=== PATIENT | female | born 1995 | race Caucasian/White ===

== ENCOUNTER 2016-06-06 21:43 | Emergency (ER) | payer OTHER ==
[2016-06-06] MEDS ORDERED: LORazepam 0.5 MG TABLET PO STA (22:11)
[2016-06-06] MEDS ORDERED: LORazepam 0.5 MG TABLET ONE (22:12)
== END 2016-06-06 22:31 | disposition home or self-care (01) ==
DX: F41.1 Generalized anxiety disorder (principal)
CPT/HCPCS: 99283; A9270

== ENCOUNTER 2016-11-18 20:54 | Emergency (ER) | payer OTHER ==
--- NOTE | 2016-11-18 21:09 | ED Physician Documentation ---
PD HPI HEADACHE - Stated complaint Stated Complaint: HEAD PX - Chief complaint Chief Complaint: Trauma Hd/Nk - History obtained from History obtained from: Patient - Additional information Additional information: She hit another player while playing soccer tonight with her forehead and then hit her occiput on the ground. She was dazed for a moment but there was no loss of consciousness. She hasn't been nauseous. She feels mild a moderate headache. No other injuries. Review of Systems Constitutional: denies: Fever, Chills Eyes: denies: Loss of vision, Decreased vision, Photophobia GI: denies: Abdominal Pain, Nausea, Vomiting PD PAST MEDICAL HISTORY - Past Medical History Past Medical History: No Neuro: Headache/migraine - Past Surgical History Past Surgical History: No - Present Medications Home Medications: Ambulatory Orders Medication Instructions Recorded Confirmed LORazepam [Ativan] 0.5 - 1 mg PO Q6H PRN #14 tablet 06/06/16 - Allergies Allergies/Adverse Reactions: Allergies Allergy/AdvReac Type Severity Reaction Status Date / Time No Known Drug Allergies Allergy Verified 02/25/16 15:29 - Social History Does the pt smoke?: No Smoking Status: Never smoker Does the pt drink ETOH?: No Does the pt have substance abuse?: No - Immunizations Immunizations are current?: Yes PD ED PE NORMAL - Vitals Vital signs reviewed: Yes - General General: Alert and oriented X 3, No acute distress - HEENT HEENT: PERRL, EOMI, Ears normal - Neck Neck: Supple, no meningeal sign, No bony TTP - Neuro Neuro: Alert and oriented X 3, senior media director 2-12 intact, No motor deficit, No sensory deficit, Normal speech, Other (neg romberg, nl gait) GCS Score: 15 - Psych Psych: Normal mood, Normal affect Results - Vitals Vitals: Vital Signs - 24 hr 11/18/16 21:00 Temperature 36.7 C Heart Rate 87 Respiratory 18 Rate Blood Pressure 123/80 O2 Saturation 98 Oxygen O2 Source Room air PD MEDICAL DECISION MAKING - ED course ED course: This young woman presents with a seemingly mild head injury. The GCS is 15. There was no loss of consciousness. There are no outward signs of trauma. At this juncture the patient has a normal neurologic examination. Departure - Departure Disposition: 01 Home, Self Care Clinical Impression: Head injury Qualifiers: Encounter type: initial encounter Qualified Code(s): S09.90XA - Unspecified injury of head, initial encounter Condition: Good Record reviewed to determine appropriate education?: Yes Instructions: ED Head Injury Closed
[2016-11-18 21:12] VITALS: BP 135/90
== END 2016-11-18 21:19 | disposition home or self-care (01) ==
LOC: ED 20:54
DX: S09.90XA Unspecified injury of head, initial encounter (principal); W50.0XXA Accidental hit or strike by another person, initial encounter; Y93.66 Activity, soccer; Y92.322 Soccer field as the place of occurrence of the external cause
CPT/HCPCS: 99282; 99283

== ENCOUNTER 2017-03-17 19:41 | Emergency (ER) | payer OTHER ==
[2017-03-17 20:13] LABS: HCG UR QUAL NEGATIVE
[2017-03-17 20:22] LABS: BASOPHILS # (AUTO) 0.1 10^3/uL (0.0-0.1); BASOPHILS % (AUTO) 0.9 %; EOSINOPHILS # (AUTO) 0.1 10^3/uL (0.0-0.7); EOSINOPHILS % (AUTO) 2.3 %; HCT - HEMATOCRIT 41.9 % (37.0-47.0); HGB - HEMOGLOBIN 14.2 g/dL (12.0-16.0); LYMPHOCYTES # (AUTO) 1.6 10^3/uL (1.5-3.5); LYMPHOCYTES % (AUTO) 26.1 %; MEAN CORPUSCULAR HEMOGLOBIN 29.9 pg (27.0-31.0); MEAN CORPUSCULAR HGB CONC 33.8 g/dL (32.0-36.0); MEAN CORPUSCULAR VOLUME 88.4 fL (81.0-99.0); MEAN PLATELET VOLUME 7.1 fL (7.9-10.8); MONOCYTES # (AUTO) 0.7 10^3/uL (0.0-1.0); MONOCYTES % (AUTO) 12.2 %; NEUTROPHILS # (AUTO) 3.5 10^3/uL (1.5-6.6); NEUTROPHILS % (AUTO) 58.5 %; RED BLOOD COUNT 4.74 10^6/uL (4.20-5.40); RED CELL DISTRIBUTION WIDTH 12.9 % (12.0-15.0)
[2017-03-17 20:36] LABS: ALBUMIN/GLOBULIN RATIO 1.6 (1.0-2.2); BILIRUBIN,TOTAL 0.4 mg/dL (0.2-1.0); CALCIUM 8.9 mg/dL (8.5-10.3); CREATININE 0.7 mg/dL (0.4-1.0); POTASSIUM 3.5 mmol/L (3.5-5.0); TOTAL PROTEIN 7.3 g/dL (6.7-8.2)
--- NOTE | 2017-03-17 20:37 | ED Physician Documentation ---
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 The beginning of February and another one at the end of February, midcycle she started to have pelvic pain, right greater than left which has continued but does respond to Tylenol and she declines any pain medication here. However over the last 3 days she started to have increased vaginal bleeding, more than normal menses. It is not associated with weakness, dyspnea or dizziness. She is not on control. She is sexually active with a single partner. 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 - Past Surgical History Past Surgical History: No - Present Medications Home Medications: Ambulatory Orders Medication Instructions Recorded Confirmed Norgestimate-Ethinyl Estradiol 1 each PO TID #1 packet 03/17/17 [Ortho Tri-Cyclen 28 Tablet] - Allergies Allergies/Adverse Reactions: Allergies Allergy/AdvReac Type Severity Reaction Status Date / Time No Known Drug Allergies Allergy Verified 03/17/17 19:48 - Social History Does the pt smoke?: No Smoking Status: Never smoker Does the pt drink ETOH?: No Does the pt have substance abuse?: No - Immunizations Immunizations are current?: Yes - POLST Patient has POLST: No PD ED PE NORMAL - Vitals Vital signs reviewed: Yes - General General: Alert and oriented X 3, No acute distress - Cardiac Cardiac: RRR, No murmur - Respiratory Respiratory: No respiratory distress, Clear bilaterally - Abdomen Abdomen: Soft, Non tender - Derm Derm: No rash - Extremities Extremities: No edema, No calf tenderness / cord - Neuro Neuro: Alert and oriented X 3, Normal speech Results - Vitals Vitals: Vital Signs - 24 hr 03/17/17 03/17/17 19:44 22:37 Temperature 36.5 C 36.3 C L Heart Rate 73 66 Respiratory 20 15 Rate Blood Pressure 119/85 H 118/69 O2 Saturation 100 99 Oxygen O2 Source Room air - Labs Labs: Laboratory Tests 03/17/17 03/17/17 03/17/17 19:59 20:16 20:16 WBC 6.0 RBC 4.74 Hgb 14.2 Hct 41.9 MCV 88.4 MCH 29.9 MCHC 33.8 RDW 12.9 Plt Count 245 MPV 7.1 L Neut # 3.5 Lymph # 1.6 [place] # 0.7 Eos # 0.1 Baso # 0.1 Absolute Nucleated RBC 0.00 Nucleated RBC % 0.0 Sodium 136 Potassium 3.5 Chloride 104 Carbon Dioxide 23 Anion Gap 9.0 BUN 15 Creatinine 0.7 Estimated GFR (MDRD) 105 Glucose 88 Calcium 8.9 Total Bilirubin 0.4 AST 22 ALT 15 Alkaline Phosphatase 48 Total Protein 7.3 Albumin 4.5 Globulin 2.8 Albumin/Globulin Ratio 1.6 Lipase 34 Ur Specific [place] 1.015 Urine HCG, Qual NEGATIVE - Rads (name of study) Pelvic sono Radiology: EMP read contemporaneously (Potential left ovarian dermoid cyst) PD MEDICAL DECISION MAKING - ED course ED course: 22-year-old woman with pelvic pain for 3 weeks that started midcycle over the last cycle and now with irregular vaginal bleeding which is heavier than a period but no evidence of anemia. She has an ultrasound here which is consistent with a dermoid cyst. 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 She declined pain medication here. Departure - Departure Disposition: 01 Home, Self Care Clinical Impression: Pelvic pain, Vaginal bleeding, Dermoid cyst Condition: Good Record reviewed to determine appropriate education?: Yes Instructions: ED Pelvic Pain [facility] Prescriptions: Norgestimate-Ethinyl Estradiol [Ortho Tri-Cyclen 28 Tablet] 1 each PO TID #1 packet Comments: [place], let him/her know that you have what appears to be a left ovarian dermoid cyst and that you will need a referral [place] and treatment. Your blood pressure was elevated today on check into the emergency department. This does not mean that you have hypertension, it is a common phenomenon to come to the emergency department and have elevated blood pressure. I recommend that she see your primary care physician within the week to have it rechecked when you are feeling better. Discharge Date/Time: 03/17/17 22:37
[2017-03-17] MEDS ORDERED: SODIUM CHLORIDE FLUSH 0.9% 10 ML SYRINGE IVP ONE (21:06)
--- NOTE | 2017-03-17 22:23 | Ultrasound Preliminary Report ---
Exam: US PELVIC NON OB W/DOPPLER IMPRESSION: 1. Uterus and right ovary appear normal. 2. Normal-appearing left ovary measuring 6.8 cc with echogenic focus abutting the ovary measuring 2.5 x 2.3 cm, possibly a dermoid. [facility] SITE ID: [id number]
--- NOTE | 2017-03-17 22:25 | Ultrasound Report ---
EXAM: PELVIC ULTRASOUND EXAM DATE: 03/17/2017 10:10 PM. CLINICAL HISTORY: Pelvic pain. COMPARISON: None. TECHNIQUE: Realtime transabdominal pelvic scan performed to identify the uterus and adnexa and as an overview of other pelvic structures, followed by transvaginal scan to provide greater detail of the u terus and adnexa, with static image documentation. Pulsed Doppler and color Doppler performed. FINDINGS: Uterus: 8.0 x 3.2 x 4.2 cm, volume 57 cc. Anteverted position. Normal overall size and echotexture. Masses: None. Endometrium: 3 mm. Normal. Cervix: Unremarkable. Right Ovary: 2.9 x 1.9 x 2.4 cm, volume 7 cc. Normal echotexture and blood flow. Left Ovary: 2.7 x 1.7 x 1.7 cm, volume 6.8 cc. Echogenic focus abutting the ovary measuring 2.5 x 2.3 cm. Blood flow is seen in the ovary by Doppler. Free Fluid: None. Other: None. IMPRESSION: 1. Uterus and right ovary appear normal. 2. Normal-appearing left ovary measuring 6.8 cc with echogenic focus abutting the ovary measuring 2.5 x 2.3 cm, possibly a dermoid. [facility] Referring Provider Line: [phone] SITE ID: [id number]
[2017-03-17 22:37] VITALS: BP 118/69
[2017-03-17 23:50] LABS: BILIRUBIN,URINE NEGATIVE (NEGATIVE)
[2017-03-17 23:51] LABS: UA w/ MICROSCOPIC CHARGE YES
[2017-03-17 23:55] LABS: UR CULTURE IF IND NOT INDICATED; WBC,URINE 0-3 /HPF (0-5)
== END 2017-03-17 22:37 | disposition home or self-care (01) ==
LOC: ED 19:41
DX: R10.2 Pelvic and perineal pain (principal); N93.9 Abnormal uterine and vaginal bleeding, unspecified; D27.1 Benign neoplasm of left ovary; R03.0 Elevated blood-pressure reading, without diagnosis of hypertension
CPT/HCPCS: 36415; 76830; 76856; 80053; 81001; 81003; 81025; 83690; 85025; 87086; 93975; 99283

== ENCOUNTER 2017-10-20 18:16 | Emergency (ER) | payer OTHER ==
[2017-10-20 19:58] LABS: HCG UR QUAL NEGATIVE
--- NOTE | 2017-10-20 20:14 | ED Physician Documentation ---
History of Present Illness - Stated complaint Stated Complaint: L HIP PX - Chief complaint Chief Complaint: Ext Problem - History obtained from History obtained from: Patient - History of Present Illness Timing: How many hours ago (4) Improved by: rest Worsened by: movement - Additonal information Additional information: rapid onset left hip pain while ambulating, approximately 4 hours ago. Denies h/ o similar symptoms, denies injury. Review of Systems Constitutional: denies: Fever, Chills, Sweats Cardiac: denies: Chest pain / pressure Respiratory: denies: Dyspnea GI: denies: Abdominal Pain Musculoskeletal: reports: Joint pain (left hip), Pain with weight bearing. 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 - Past Surgical History Past Surgical History: Yes - Present Medications Home Medications: Ambulatory Orders Medication Instructions Recorded Confirmed Norgestimate-Ethinyl Estradiol 1 each PO TID #1 packet 03/17/17 [Ortho Tri-Cyclen 28 Tablet] Hydrocodone/Acetaminophen 1 - 2 each PO Q6HR PRN #14 tablet 10/20/17 [Hydrocodon-Acetaminophen 5-325] - Allergies Allergies/Adverse Reactions: Allergies Allergy/AdvReac Type Severity Reaction Status Date / Time No Known Drug Allergies Allergy Verified 10/20/17 18:20 - Social History Does the pt smoke?: No Smoking Status: Never smoker Does the pt drink ETOH?: No Does the pt have substance abuse?: No - Immunizations Immunizations are current?: Yes - POLST Patient has POLST: No PD ED PE NORMAL - Vitals Vital signs reviewed: Yes - General General: Alert and oriented X 3, No acute distress, Well developed/nourished - Abdomen Abdomen: Soft, Non tender - Back Back: No spinal TTP - Derm Derm: Normal color, Warm and dry, No rash - Extremities Extremities: No deformity, No tenderness to palpate, No edema, No calf tenderness / cord, Other (left hip: no rash/erythema, not hot to touch, no swelling. pain with ROM although ROM is intact) Results - Vitals Vitals: Vital Signs - 24 hr 10/20/17 10/20/17 18:19 20:42 Temperature 36.7 C Heart Rate 79 57 L Respiratory 16 18 Rate Blood Pressure 121/72 114/37 L O2 Saturation 100 98 Oxygen O2 Source Room air - Labs Labs: Laboratory Tests 10/20/17 19:[address] [place] 1.025 Urine HCG, Qual NEGATIVE PD MEDICAL DECISION MAKING - ED course Complexity details: considered differential, d/w patient ED course: unremarkable exam except ROM does worsen pain. HPI/PE do not suggest injury, infection, DVT, or other emergent process that would require testing or targeted treatment. Given ibuprofen in ED and take-home vicodin (to be used if the ibuprofen is ineffective). instructed to return if worse, and also to return if she develops rash/redness, fever, numbness, weakness. Departure - Departure Disposition: 01 Home, Self Care Clinical Impression: Hip pain, left Condition: Good Instructions: ED Joint Pain Follow-Up: [facility] [Provider Group] Prescriptions: Hydrocodone/Acetaminophen [Hydrocodon-Acetaminophen 5-325] 1 - 2 each PO Q6HR PRN #14 tablet PRN Reason: Pain Forms: Activity restrictions Discharge Date/Time: 10/20/17 20:56
[2017-10-20] MEDS ORDERED: IBUPROFEN 600 MG TABLET PO STA (20:30)
[2017-10-20] MEDS ORDERED: HYDROcod/ACET 5/325 Prepack 4 PO STA (20:30)
[2017-10-20 20:42] VITALS: BP 114/37
== END 2017-10-20 20:56 | disposition home or self-care (01) ==
LOC: ED 18:16
DX: M25.552 Pain in left hip (principal)
CPT/HCPCS: 81025; 99283; A9270

== ENCOUNTER 2017-10-22 13:35 | Emergency (ER) | payer OTHER ==
--- NOTE | 2017-10-22 13:54 | ED Physician Documentation ---
PD HPI BACK INJURY - Stated complaint Stated Complaint: L HIP/LEG PX - History obtained from History obtained from: Patient - History of Present Illness Location: Other (2 nights ago without specific injury while walking she developed severe sharp left hip and low back pain radiating into the left thigh like a stabbing. It hurts to walk and it hurts to move the hip. There is tingling in the leg but not the saddle area. She has never had this before. She had a negative test 2 days ago. 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 - Past Surgical History Past Surgical History: Yes - Present Medications Home Medications: Ambulatory Orders Medication Instructions Recorded Confirmed Norgestimate-Ethinyl Estradiol 1 each PO TID #1 packet 03/17/17 [Ortho Tri-Cyclen 28 Tablet] Hydrocodone/Acetaminophen 1 - 2 each PO Q6HR PRN #14 tablet 10/20/17 [Hydrocodon-Acetaminophen 5-325] Gabapentin 300 mg PO TID #90 capsule 10/22/17 predniSONE [Deltasone] 20 mg PO [id number] #21 tab 10/22/17 - Allergies Allergies/Adverse Reactions: Allergies Allergy/AdvReac Type Severity Reaction Status Date / Time latex AdvReac Rash Verified 10/22/17 13:42 - Social History Does the pt smoke?: No Smoking Status: Never smoker Does the pt drink ETOH?: No Does the pt have substance abuse?: No - Immunizations Immunizations are current?: Yes - POLST Patient has POLST: No PD ED PE NORMAL - Vitals Vital signs reviewed: Yes - General General: Alert and oriented X 3, No acute distress - Back Back: No spinal TTP, Other (Tender in the left sciatic notch) - Extremities Extremities: Other (Left hip is nontender and she has painless internal and external rotation. She has equal sensation throughout the legs but is weak in left knee extension and dorsiflexion of the left great toe. Otherwise her strength is normal and symmetric. Patellar reflexes are equal.) - Neuro Neuro: Alert and oriented X 3, Normal speech Results - Vitals Vitals: Vital Signs - 24 hr 10/22/17 13:38 Temperature 37 C Heart Rate 98 Respiratory 14 Rate Blood Pressure 121/83 H O2 Saturation 98 Oxygen O2 Source Room air - Rads (name of study) XRs Left hip and LS spine Radiology: EMP read contemporaneously (Negative except for scoliosis) Departure - Departure Disposition: 01 Home, Self Care Clinical Impression: Hip pain, left Sciatica Qualifiers: Laterality: left Qualified Code(s): M54.32 - Sciatica, left side Condition: Good Record reviewed to determine appropriate education?: Yes Instructions: ED Sciatica Prescriptions: Gabapentin 300 mg PO TID #90 capsule predniSONE [Deltasone] 20 mg PO [id number] #21 tab Comments: [place]. Return if worsening or if new symptoms develop.
--- NOTE | 2017-10-22 14:44 | XRAY Report ---
EXAM: LUMBOSACRAL SPINE RADIOGRAPHY EXAM DATE: 10/22/2017 02:18 PM. CLINICAL HISTORY: Hip/back pain. COMPARISONS: None. TECHNIQUE: 2 views. FINDINGS: Alignment: Leftward curvature of the lumbar spine measuring 11 degrees. Bones: Five [id number] lumbar vertebral bodies are present. No fractures or bone lesions. Disks: Normal. Disk heights are maintained. Facets: No degenerative changes. Sacroiliac Joints: Unremarkable. Soft Tissues: Moderate amount of stool within the colon. IMPRESSION: Mild leftward curvature lumbar spine, otherwise unremarkable lumbar spine series. [facility] Referring Provider Line: [phone] SITE ID: [id number]
--- NOTE | 2017-10-22 14:46 | XRAY Report ---
EXAM: LEFT HIP AND PELVIS RADIOGRAPHY EXAM DATE: 10/22/2017 02:11 PM. HISTORY: Hip/back pain. COMPARISONS: None. TECHNIQUE: 1 view of the pelvis and 1 view of the hip. FINDINGS: Bones: Normal. No fracture or bone lesion. Joints: The bilateral hip, pubis symphysis, and sacroiliac joints are preserved. Soft Tissues: Normal. No soft tissue swelling. IMPRESSION: Normal pelvis and hip radiography. [facility] Referring Provider Line: [phone] SITE ID: [id number]
[2017-10-22 15:06] VITALS: BP 110/63
== END 2017-10-22 14:58 | disposition home or self-care (01) ==
LOC: ED 13:35
DX: M25.552 Pain in left hip (principal); M54.32 Sciatica, left side
CPT/HCPCS: 72100; 99283

== ENCOUNTER 2018-01-09 23:15 | Emergency (ER) | payer OTHER ==
[2018-01-09 23:45] LABS: BILIRUBIN,URINE NEGATIVE (NEGATIVE); GLUCOSE, URINE (UA) NEGATIVE (NEGATIVE); KETONES,URINE (UA) NEGATIVE (NEGATIVE); LEUKOCYTE ESTERASE, URINE NEGATIVE (NEGATIVE); NITRITE,URINE NEGATIVE (NEGATIVE); OCCULT BLOOD,URINE NEGATIVE (NEGATIVE); PH,URINE 7.5 PH (5.0-7.5); PROTEIN,URINE NEGATIVE (NEGATIVE); UROBILINOGEN,URINE 0.2 (NORMAL) E.U./dL (NORMAL)
[2018-01-09 23:52] LABS: CLARITY,URINE CLEAR (CLEAR); HCG UR QUAL NEGATIVE
--- NOTE | 2018-01-10 00:36 | ED Physician Documentation ---
PD HPI ABD PAIN - Stated complaint Stated Complaint: ABDOMINAL PAIN,VOMITING - Chief complaint Chief Complaint: Abd Pain - History obtained from History obtained from: Patient - History of Present Illness Timing - onset: How many days ago (3) Timing - duration: Days Timing - details: Gradual onset, Intermittant, Waxing and waning Pain level max: 8 Pain level now: 2 Quality: Pain Location: LLQ Radiation: Other (no radiation) Improved by: Laying still Worsened by: Moving Recently seen: Other (evaluated Tuesday (01/06/18) at [facility], was prescribed antibiotic for possible UTI but called earlier today and told she can stop the antibiotic because urine culture was negative) - Additional information Additional information: c/o 3 days of left lower quadrant abdominal pain with nausea and vomiting Review of Systems Constitutional: reports: Reviewed and negative Cardiac: reports: Reviewed and negative Respiratory: reports: Reviewed and negative GI: reports: Abdominal Pain, Nausea, Vomiting. 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 : None HEENT: None Psych: None Musculoskeletal: None Derm: None - Past Surgical History Past Surgical History: Yes - Present Medications Home Medications: Ambulatory Orders Medication Instructions Recorded Confirmed Norgestimate-Ethinyl Estradiol 1 each PO TID #1 packet 03/17/17 [Ortho Tri-Cyclen 28 Tablet] Hydrocodone/Acetaminophen 1 - 2 each PO Q6HR PRN #14 tablet 10/20/17 [Hydrocodon-Acetaminophen 5-325] Gabapentin 300 mg PO TID #90 capsule 10/22/17 predniSONE [Deltasone] 20 mg PO [id number] #21 tab 10/22/17 Hydrocodone/Acetaminophen 1 - 2 each PO Q6HR PRN #14 tablet 01/10/18 [Hydrocodon-Acetaminophen 5-325] Ondansetron Odt [Zofran] 4 mg TL Q6H PRN #14 tablet 01/10/18 - Allergies Allergies/Adverse Reactions: Allergies Allergy/AdvReac Type Severity Reaction Status Date / Time latex AdvReac Rash Verified 01/09/18 23:29 - Social History Does the pt smoke?: No Smoking Status: Never smoker Does the pt drink ETOH?: No Does the pt have substance abuse?: No - Immunizations Immunizations are current?: Yes - POLST Patient has POLST: No PD ED PE NORMAL - Vitals Vital signs reviewed: Yes - General General: Alert and oriented X 3, No acute distress, Well developed/nourished - HEENT HEENT: Moist mucous membranes - Cardiac Cardiac: RRR, No murmur - Respiratory Respiratory: No respiratory distress, Clear bilaterally - Abdomen Abdomen: Normal bowel sounds, Soft, Non distended, Other (mild/moderate LLQ tenderness without rebound or guarding) - Back Back: No CVA TTP - Derm Derm: Normal color, Warm and dry Results - Vitals Vitals: Oxygen O2 Source Room air - Labs Labs: Laboratory Tests 01/09/18 01/09/18 01/10/18 23:30 23:30 01:14 WBC 7.0 RBC 4.72 Hgb 14.1 Hct 41.5 MCV 87.9 MCH 30.0 MCHC 34.1 RDW 13.2 Plt Count 209 MPV 7.1 L Neut # (Auto) 5.2 Lymph # (Auto) 0.9 L [place] # (Auto) 0.8 Eos # (Auto) 0.1 Baso # (Auto) 0.1 Absolute Nucleated RBC 0.00 Nucleated RBC % 0.0 Sodium Potassium Chloride Carbon Dioxide Anion Gap BUN Creatinine Estimated GFR (MDRD) Glucose Calcium Total Bilirubin AST ALT Alkaline Phosphatase Total Protein Albumin Globulin Albumin/Globulin Ratio Lipase Urine Color YELLOW Urine Clarity CLEAR Urine pH 7.5 Ur Specific [place] 1.010 1.010 Urine Protein NEGATIVE Urine Glucose (UA) NEGATIVE Urine Ketones NEGATIVE Urine Occult Blood NEGATIVE Urine Nitrite NEGATIVE Urine Bilirubin NEGATIVE Urine Urobilinogen 0.2 (NORMAL) Ur Leukocyte Esterase NEGATIVE Ur Microscopic Review NOT INDICATED Urine Culture Comments NOT INDICATED Urine HCG, Qual NEGATIVE 01/10/18 01:14 WBC RBC Hgb Hct MCV MCH MCHC RDW Plt Count MPV Neut # (Auto) Lymph # (Auto) [place] # (Auto) Eos # (Auto) Baso # (Auto) Absolute Nucleated RBC Nucleated RBC % Sodium 135 Potassium 3.7 Chloride 104 Carbon Dioxide 27 Anion Gap 4.0 L BUN 7 Creatinine 0.7 Estimated GFR (MDRD) 105 Glucose 121 H Calcium 9.2 Total Bilirubin 0.7 AST 20 ALT 12 Alkaline Phosphatase 41 L Total Protein 6.6 L Albumin 3.9 Globulin 2.7 Albumin/Globulin Ratio 1.4 Lipase 40 Urine Color Urine Clarity Urine pH Ur Specific [place] Urine Protein Urine Glucose (UA) Urine Ketones Urine Occult Blood Urine Nitrite Urine Bilirubin Urine Urobilinogen Ur Leukocyte Esterase Ur Microscopic Review Urine Culture Comments Urine HCG, Qual - Rads (name of study) CT A/P Radiology: Prelim report reviewed, See rad report PD MEDICAL DECISION MAKING - ED course Complexity details: reviewed results, re-evaluated patient, considered differential, d/w patient - Sepsis Event Vital Signs: Oxygen O2 Source Room air Departure - Departure Disposition: Home, Self Care Clinical Impression: Ovarian cyst Qualifiers: Laterality: left Qualified Code(s): N83.202 - Unspecified ovarian cyst, left side Condition: Good Instructions: ED Cyst Ovarian Follow-Up: [facility] [Provider Group] Prescriptions: Hydrocodone/Acetaminophen [Hydrocodon-Acetaminophen 5-325] 1 - 2 each PO Q6HR PRN #14 tablet PRN Reason: Pain Ondansetron Odt [Zofran] 4 mg TL Q6H PRN #14 tablet PRN Reason: Nausea / Vomiting Forms: Activity restrictions Discharge Date/Time: 01/10/18 02:54
[2018-01-10] MEDS ORDERED: ONDANSETRON 4 MG/2 ML VIAL IVP STA (00:59)
[2018-01-10] MEDS ORDERED: SODIUM CHLORIDE 0.9% 1,000 ML IV STA (00:59)
[2018-01-10] MEDS ORDERED: IOPAMIDOL-300 100 ML VIAL ONE (01:07)
[2018-01-10 01:19] LABS: BASOPHILS # (AUTO) 0.1 10^3/uL (0.0-0.1); BASOPHILS % (AUTO) 0.9 %; EOSINOPHILS # (AUTO) 0.1 10^3/uL (0.0-0.7); EOSINOPHILS % (AUTO) 1.7 %; HGB - HEMOGLOBIN 14.1 g/dL (12.0-16.0); LYMPHOCYTES # (AUTO) 0.9 10^3/uL (1.5-3.5); LYMPHOCYTES % (AUTO) 12.3 %; MEAN CORPUSCULAR HGB CONC 34.1 g/dL (32.0-36.0); MEAN CORPUSCULAR VOLUME 87.9 fL (81.0-99.0); MEAN PLATELET VOLUME 7.1 fL (7.9-10.8); MONOCYTES # (AUTO) 0.8 10^3/uL (0.0-1.0); NEUTROPHILS # (AUTO) 5.2 10^3/uL (1.5-6.6); NEUTROPHILS % (AUTO) 74.1 %; PLT - PLATELET COUNT 209 10^3/uL (130-450); RED BLOOD COUNT 4.72 10^6/uL (4.20-5.40); RED CELL DISTRIBUTION WIDTH 13.2 % (12.0-15.0)
[2018-01-10 01:34] LABS: ALBUMIN 3.9 g/dL (3.2-5.5); ALBUMIN/GLOBULIN RATIO 1.4 (1.0-2.2); BILIRUBIN,TOTAL 0.7 mg/dL (0.2-1.0); CALCIUM 9.2 mg/dL (8.5-10.3); CREATININE 0.7 mg/dL (0.4-1.0); TOTAL PROTEIN 6.6 g/dL (6.7-8.2)
[2018-01-10] MEDS ORDERED: IOPAMIDOL-300 100 ML VIAL IVP ONE (01:58)
[2018-01-10 01:59] VITALS: BP 112/70
--- NOTE | 2018-01-10 02:20 | CT Report ---
Procedure Date: 01/10/2018 Accession Number: [id number] / [id number] Procedure: CT - Abdomen/Pelvis W/ CPT Code: FULL RESULT: EXAM: CT ABDOMEN AND PELVIS EXAM DATE: 01/10/2018 02:01 AM. CLINICAL HISTORY: Abd. pain, L>R. COMPARISONS: None. TECHNIQUE: Routine helical CT imaging was performed through the abdomen and pelvis. IV contrast: ISOVUE 300 100mL. Enteric contrast: No. Reconstructions: Coronal and sagittal. In accordance with CT protocol optimization, one or more of the following dose reduction techniques were utilized for this exam: automated exposure control, adjustment of mA and/or KV based on patient size, or use of iterative reconstructive technique. FINDINGS: Lung Bases: Unremarkable. Liver: Normal. No masses. Gallbladder/Bile Ducts: Unremarkable. Spleen: Normal. Pancreas: Normal. Adrenal Glands: Normal. Kidneys: Normal. No masses or hydronephrosis. Peritoneal Cavity/Bowel: Normal. No free fluid, free air or adenopathy. No masses or acute inflammatory process. The appendix is not confidently identified, but there is no evidence of an abnormal pericecal fluid collection or inflammation to suggest acute appendicitis. Pelvic Organs: Left ovarian cyst, measuring 4.5 x 4.4 x 2.9 cm. No free fluid. Vasculature: No aneurysms or other significant abnormality. Bones: No significant abnormality. Other: None. IMPRESSION: 4.5 cm left ovarian cyst. Nonvisualization of the appendix, but no secondary findings of acute appendicitis. [facility]
== END 2018-01-10 02:54 | disposition home or self-care (01) ==
LOC: ED 23:15
DX: N83.202 Unspecified ovarian cyst, left side (principal)
CPT/HCPCS: 36415; 74177; 80053; 81003; 81025; 83690; 85025; 96361; 96374; 99283; Q9967; 81001; 87086

== ENCOUNTER 2018-01-12 13:10 | Day surgery (SDC) | payer OTHER ==
[2018-01-12] MEDS ORDERED: KETOROLAC 60 MG/2 ML VIAL IM STA (13:36)
[2018-01-12 15:03] LABS: BILIRUBIN,URINE NEGATIVE (NEGATIVE); GLUCOSE, URINE (UA) NEGATIVE (NEGATIVE); KETONES,URINE (UA) NEGATIVE (NEGATIVE); LEUKOCYTE ESTERASE, URINE NEGATIVE (NEGATIVE); NITRITE,URINE NEGATIVE (NEGATIVE); OCCULT BLOOD,URINE NEGATIVE (NEGATIVE); PROTEIN,URINE NEGATIVE (NEGATIVE); UROBILINOGEN,URINE 0.2 (NORMAL) E.U./dL (NORMAL)
[2018-01-12 15:07] LABS: CLARITY,URINE CLEAR (CLEAR); HCG UR QUAL NEGATIVE
--- NOTE | 2018-01-12 16:53 | Ultrasound Report ---
Procedure Date: 01/12/2018 Accession Number: [id number] / [id number] Procedure: US - Pelvic w/Transvag+Doppler Ltd CPT Code: FULL RESULT: EXAM: PELVIC ULTRASOUND EXAM DATE: 01/12/2018 04:35 PM. CLINICAL HISTORY: Known 4+ cm left ovarian cyst, acute increased pain. COMPARISON: 01/10/2018. TECHNIQUE: Realtime transabdominal pelvic scan performed to identify the uterus and adnexa and as an overview of other pelvic structures, followed by transvaginal scan to provide greater detail of the uterus and adnexa, with static image documentation. FINDINGS: Uterus: 8.1 x 4.5 x 4.9 cm, volume 95 cc. Anteverted position. Normal overall size and echotexture. Masses: None. Endometrium: 9.5 mm. Normal. Cervix: No masses. Small nabothian cyst measuring 0.6 cm. Right Ovary: 3.5 x 1.6 x 2.6 cm, volume 74 cc. Normal echotexture and blood flow. Left Ovary: 5.8 x 5.2 x 4.9 cm, volume 77 cc. Normal echotexture and blood flow. CT cyst corresponds to a 5.5 x 4.5 x 4.2 cm complex cystic mass with lacelike debris. 1.7 cm posterior mural nodule. No vascular components. Free Fluid: None. Other: None. IMPRESSION: 1. CT findings correspond with a 5.5 cm complex mixed cystic and solid left ovarian cyst with lacelike debris. Differential considerations include endometrioma versus complex hemorrhagic cyst. Followup in 1 to 2 cycles could be performed to document resolution of findings. Otherwise, left ovary is unremarkable. No left ovarian torsion. 2. Normal right ovary, right adnexa, uterus and endometrium. RADIA
--- NOTE | 2018-01-12 17:00 | ED Physician Documentation ---
History of Present Illness - Stated complaint Stated Complaint: ABD PX - Chief complaint Chief Complaint: Abd Pain - Additonal information Additional information: hx from pt 22 f AD [place] LMP December 14, neg HCG today and also 2 days ago hx dermoid ovarian cyst requiring surgery done at [facility] seen in our ED 2 days ago for abd pain so bad it caused her to vomit and pass out CT showed a 4.5 cm L ovarian cyst pt was dced to [facility] [place] PROPERTY UNDERWRITER rx vicodin today increased severe pain again, waxes and wanes from mod severity to severe no fever no NVD no vag bleed no vag dc Review of Systems Constitutional: denies: Fever, Chills Cardiac: denies: Chest pain / pressure Respiratory: denies: Dyspnea GI: reports: Abdominal Pain. denies: Vomiting, Diarrhea : denies: Discharge, Vaginal bleeding, Now EGA Endocrine: denies: Easy bruising / bleeding Immunocompromised: denies: Immunocompromised PD PAST MEDICAL HISTORY - Past Medical History Past Medical History: Yes Cardiovascular: None Neuro: None GI: GERD PROPERTY UNDERWRITER: Ovarian cysts : None HEENT: None Psych: None Musculoskeletal: None Derm: None - Past Surgical History Past Surgical History: Yes - Present Medications Home Medications: Ambulatory Orders Medication Instructions Recorded Confirmed Omeprazole [PriLOSEC] 20 mg PO DAILY 01/12/18 01/12/18 - Allergies Allergies/Adverse Reactions: Allergies Allergy/AdvReac Type Severity Reaction Status Date / Time latex AdvReac Rash Verified 01/12/18 13:16 - Social History Does the pt smoke?: No Smoking Status: Never smoker Does the pt drink ETOH?: No Does the pt have substance abuse?: No - Immunizations Immunizations are current?: Yes - POLST Patient has POLST: No PD ED PE NORMAL - Vitals Vital signs reviewed: Yes - General General: Alert and oriented X 3 - Neck Neck: Supple, no meningeal sign - Cardiac Cardiac: RRR - Respiratory Respiratory: No respiratory distress, Clear bilaterally - Abdomen Abdomen: Soft, Other (TTP LLQ s peritoneal signs) - Neuro Neuro: Alert and oriented X 3 Results - Vitals Vitals: Vital Signs - 24 hr 01/12/18 13:14 Temperature 36.3 C L Heart Rate 81 Respiratory 16 Rate Blood Pressure 121/72 O2 Saturation 99 Oxygen O2 Source Room air - Labs Labs: Laboratory Tests 01/12/18 14:58 Urine Color YELLOW Urine Clarity CLEAR Urine pH 7.0 Ur Specific [place] <=1.005 Urine Protein NEGATIVE Urine Glucose (UA) NEGATIVE Urine Ketones NEGATIVE Urine Occult Blood NEGATIVE Urine Nitrite NEGATIVE Urine Bilirubin NEGATIVE Urine Urobilinogen 0.2 (NORMAL) Ur Leukocyte Esterase NEGATIVE Ur Microscopic Review NOT INDICATED Urine Culture Comments NOT INDICATED Urine HCG, Qual NEGATIVE - Rads (name of study) pelvic sono with doppler Radiology: See rad report (5.5 cm complex mixed cystic and solid L ovarian cyst with lacelike debris. Ddx include endometrioma vs complex hemorrhagic cyst. Fup in 1-2 menstrual cycles recommended to document resolution. NO LEFT OVARIAN TORSION. Nl right ovary. Nl uterus) PD MEDICAL DECISION MAKING - ED course ED course: pain subsided with toradol 5+ cm complex possibly hemorrhagic or dermoid cyst with int severe pain not presently torsed but pain int escalating during ED stay conern is that this very large cyst is causing intermittent torsion spoke to [place] PROPERTY UNDERWRITER financial operations analyst who agrees with concern for intermittent torsion and advises this may be an indication for same day surgery for cyst removal - but advises would need to be done at [facility] not transferred back to [facility] paged Dr Yu PROPERTY UNDERWRITER at 5 PM to discuss case pt remains NPO Dr Yu called back and we discussed the case and he will come straight to the ER to evaluate the pt and plans to take her to the OR care turned over to mid shift Dr Rasmussen pending pt leaving for OR pt updated on plan - Sepsis Event Vital Signs: Vital Signs - 24 hr 01/12/18 13:14 Temperature 36.3 C L Heart Rate 81 Respiratory 16 Rate Blood Pressure 121/72 O2 Saturation 99 Oxygen O2 Source Room air Departure - Departure Disposition: ED Transfer to [facility] Clinical Impression: Hemorrhagic cyst of left ovary Condition: Good Instructions: ED Cyst Ovarian Follow-Up: [facility] [Provider Group]
[2018-01-12] MEDS ORDERED: SODIUM CHLORIDE 0.9% 1,000 ML IV ONE (18:38)
--- NOTE | 2018-01-12 20:27 | ANESTHESIA ---
Pre-Anesthesia VS, & Labs - Diagnosis left ovarian tumor (dermoid) - Procedure Laparoscopic ovarian cystectomy, left, possible oopherectomy Vital Signs: Temp Pulse Resp BP Pulse Ox 36.3 C L 74 15 121/69 98 01/12/18 13:14 01/12/18 20:19 01/12/18 20:19 01/12/18 20:19 01/12/18 20:19 Height 5 ft 4 in Weight (kg) 74.843 kg Body Mass Index 28.3 - NPO >8 hours - Is Patient ?: No Home Medications and Allergies Home Medications: Ambulatory Orders Medication Instructions Recorded Confirmed Omeprazole [PriLOSEC] 20 mg PO DAILY 01/12/18 01/12/18 Allergies/Adverse Reactions: Allergies Allergy/AdvReac Type Severity Reaction Status Date / Time latex AdvReac Rash Verified 01/12/18 13:16 Anes History & Medical History - Anesthetic History Anesthesia Complications: reports: No previous complications - Medical History Cardiovascular: reports: None Gastrointestinal: reports: GERD Urinary: reports: None Neuro: reports: None Musculoskeletal: reports: None Blood Disorders: reports: None Skin: reports: None Smoking Status: Never smoker - Surgical History Gynecologic: Other (ovarian cystectomy) Exam General: Alert Dental: WNL Mouth Openin Fingerbreadth Mallampati classification: II Thyromental Distance: 4-6 cm Respiratory: Lungs clear Cardiovascular: Regular rate Mental/Cognitive Status: Alert/Oriented X3 Plan Anesthesia Type: General Consent for Procedure(s) Verified and Reviewed: Yes Code Status: Attempt Resuscitation ASA classification: 2-Mild systemic disease Is this case an emergency?: Yes
[2018-01-12] MEDS ORDERED: BUPIVACAINE 0.5%-EPI 1:200000 PF 30 ML VIAL ONE (20:54)
[2018-01-12] MEDS ORDERED: METHYLENE BLUE 0.5% 50 MG/10 ML AMPULE ONE (21:43)
[2018-01-12] MEDS ORDERED: BUPIVACAINE 0.5%-EPI 1:200000 PF 30 ML VIAL SUBQ ONE ×2 (22:03)
[2018-01-12] MEDS ORDERED: LACTATED RINGERS 1,000 ML IV ONE ×2 (22:05→23:28)
[2018-01-12] MEDS ORDERED: LIDOCAINE-MPF 2% 5 ML VIAL IM ONE (22:10)
[2018-01-12] MEDS ORDERED: ROCURONIUM 50 MG/5 ML VIAL IVP ONE (22:10)
[2018-01-12] MEDS ORDERED: GLYCOPYRROLATE 1 MG/5 ML VIAL IVP ONE (22:10)
[2018-01-12] MEDS ORDERED: ACETAMINOPHEN 1,000 MG/100 ML 100 ML IV ONE (22:10)
[2018-01-12] MEDS ORDERED: MIDAZOLAM 2 MG/2 ML VIAL IVP ONE (22:10)
[2018-01-12] MEDS ORDERED: ONDANSETRON 4 MG/2 ML VIAL IVP ONE (22:10)
[2018-01-12] MEDS ORDERED: DEXAMETHASONE 4 MG/ML VIAL IVP ONE (22:10)
[2018-01-12] MEDS ORDERED: fentaNYL 100 MCG/2 ML VIAL IVP ONE (22:10)
[2018-01-12] MEDS ORDERED: PROPOFOL 200 MG/20 ML VIAL IVP ONE (22:10)
[2018-01-12] MEDS ORDERED: NEOSTIGMINE 1 MG/1 ML 10 ML MDV IVP ONE (22:10)
[2018-01-12] MEDS ORDERED: ceFAZolin 1 GM VIAL IV ONE (22:10)
--- NOTE | 2018-01-12 22:45 | HISTORY & PHYSICAL EXAMINATION ---
DATE OF SERVICE: 01/12/2018 Physician: Dany Yu MD DIAGNOSES 1. A 5.5 cm left dermoid cyst with intermittent torsion and associated severe abdominal pain. 2. Prior left ovarian dermoid removed laparoscopically approximately a year ago. INTENDED PROCEDURE: Laparoscopic left dermoid cystectomy, possible oophorectomy. HISTORY OF PRESENT ILLNESS: The patient is a 22-year-old nulligravida who was seen 2 days ago in the ED with left lower quadrant pain. At that time, a CT scan documented a 4.5 cm left ovarian cyst. The patient was discharged to follow up with [facility] COLOR ROOM ATTENDANT. Today, she returns with increased pain to the point where she is near syncope. the pain vacillates from 11/13 to 02/13. She has no fevers, recent illness or vaginal discharge. She has never had an STI history or suspected exposure. There is no abnormal vaginal bleeding, and her last menstrual period was December 14. Two urine tests are negative. Pain is exacerbated by movement. The patient has been given a dose of Toradol. PAST MEDICAL HISTORY: No chronic disease history. Essentially healthy other than minor acid reflux. PAST SURGICAL HISTORY: Laparoscopic left dermoid resection and excision. ALLERGIES: THE PATIENT IS SENSITIVE TO LATEX, CAUSES RASH. MEDICATIONS: Prilosec 20 mg daily. SOCIAL HISTORY: Nonsmoker, no alcohol or drug consumption. FAMILY HISTORY: Positive for breast cancer. REVIEW OF SYSTEMS CONSTITUTIONAL: Negative. CARDIAC: Negative. RESPIRATORY: Negative. GASTROINTESTINAL: Negative other than abdominal pain and nausea but no vomiting or diarrhea. GENITOURINARY: Negative. No urinary tract symptoms. HEMATOLOGIC: No easy bruising or bleeding tendencies. ENDOCRINOLOGIC: Negative. MUSCULOSKELETAL: Negative. SKIN: Negative. NEUROLOGIC: Negative. PSYCHIATRIC: Negative. PHYSICAL EXAMINATION GENERAL: The patient lying still on ER [facility], alert, cooperative. VITAL SIGNS: Temperature 36.3, heart rate 81, respirations 16, blood pressure 121/72, O2 saturation 99. HEENT: Supple neck. Dentition in good repair. No thyromegaly. LUNGS: Clear to auscultation. CARDIAC: Regular. No murmur, no gallop. BREASTS: Deferred. ABDOMEN: Nondistended. No organomegaly. Left lower quadrant tenderness without rebound. PELVIC: Deferred to OR. NEUROLOGIC: Grossly intact cranial nerves. Sensory and motor function intact. SKIN: No obvious rash or lesion. MUSCULOSKELETAL: Moves all 4 extremities. No joint tenderness. RADIOLOGIC: A 5.5 cm complex cystic solid left ovarian mass with lace-like debris. Differential diagnosis includes dermoid, endometrioma, complex hemorrhagic cyst. No current torsion seen. ASSESSMENT: The patient has a documented large cystic/solid ovarian mass that makes her prone to torsion. Given the pattern of pain that she is experiencing , intermittent torsion. Possibilities include dermoid either from a residual tissue left at the time of her last surgery, with endometriosis and complex hemorrhagic cyst also likely given the architecture of the ultrasound echocardiogram. PLAN: The patient's pain is debilitating, and continued observation is not warranted. Excision of the cystic mass or possible sacrifice of the ovary is necessary. Discussed laparoscopic cystectomy and possible oophorectomy with the patient. The patient would like to have one ovary saved to preserve her reproductive capability. We discussed the risks and benefits of surgery inclusive of blood loss, transfusion, infection, damage to urinary tract or intestines, and anesthesia reaction. No guarantee was made as to whether the ovary can be salvaged or not. Dr. Ellis had cleared treatment with the [place] physician television news video editor. Ms Gibson is being prepared for surgery. TD: 01/12/2018 19:35 SILVESTRE
--- NOTE | 2018-01-12 23:20 | OPERATIVE REPORT ---
Operative Report - General Planned Procedure: Diagnostic laparoscopy, left ovarian cystectomy or oophorectomy Pre-Op Diagnosis: 5.5 cm mixed cystic ovarian mass; LLQ pain, Hx of prior dermoid Procedure Performed: Diagnostic laparoscopy; left ovarian cystectomy; reconstruction of left ovary; Excision of right ovarian nodule Post Op Diagnosis: Hemorrhagic cyst with scant solid components; Await pathology - Procedure Note Primary Surgeon: Dany Yu MD, F ACOG, FICS Anesthesia Provider: Kerri Keys, certified nurse lacquer maker Anesthesia Technique: General ET tube Pathology: Cyst contents from the left ovary; right ovarian nodule IV Fluids (mL): 800 Estimated Blood Loss (mL): 50 Urine Output (mL): 100 Drain/Tube Type: Other (Quigley catheter) Complications: None - Other Other Information/Narrative: 1 External genitalia was normal with out obvious lesions. 2 Cervix was not inflamed without any discharge or overt evidence of cervicitis 3 Uterus was nongravid normal size anteverted anteflexed. There were no obvious fibroids or other defects 4 Left ovary was approximately 6 cm in size with a tense hemorrhagic cyst inside. There was some solid material, clotted blood and cyst contents. Await final pathology 5 Right ovary was of normal size but did have a 5 mm solid nodule attached to the surface which was excised and sent to pathology. 6 Tubes were open for open and fluffy bilaterally 7 Appendix appeared normal but was partially retrocecal 8 there was no evidence of endometriosis
[2018-01-12] MEDS: HYDROmorphone 1 MG/ML CARPUJECT ONE ×2 (23:45→23:54)
[2018-01-13] MEDS ORDERED: HYDROmorphone 0.5 MG/0.5 ML SYRINGE ONE (00:09)
[2018-01-13 00:16] VITALS: BP 117/55
[2018-01-13] MEDS ORDERED: HYDROmorphone 1 MG/ML CARPUJECT IVP PRN (01:58)
[2018-01-13] MEDS ORDERED: HYDROcod/ACETAM 5/325 MG TABLET PO PRN (01:58)
[2018-01-13] MEDS ORDERED: ONDANSETRON 4 MG/2 ML VIAL IVP PRN (01:59)
[2018-01-13] MEDS ORDERED: LACTATED RINGERS 1,000 ML IV SCH (02:00)
[2018-01-13] MEDS: IBUPROFEN 600 MG TABLET PO SCH ×2 (02:05→05:48)
--- NOTE | 2018-01-13 08:37 | OPERATIVE REPORT ---
DATE OF SERVICE: 01/12/2018 Physician: Dany Yu MD PREOPERATIVE DIAGNOSES 1. A 5.5 cm mixed cystic/solid ovarian mass in the left ovary. 2. Left lower quadrant pain, severe (intermittent). 3. History of prior laparoscopic dermoid removal. POSTOPERATIVE DIAGNOSES 1. Approximately 6 cm hemorrhagic cyst with scant solid components; await pathology. 2. Right ovarian nodule, probably benign. PROCEDURES 1. Diagnostic laparoscopy. 2. Laparoscopic left ovarian cystectomy. 3. Reconstruction of left ovary. 4. Excision of right ovarian nodule. SURGEON: Dany Yu, FACOG, [facility] ANESTHESIA: Kerri Keys, certified nurse director decision support. ANESTHESIA TYPE: General with ET tube placed. PATHOLOGY 1. Contents of left ovarian cyst. 2. Right ovarian nodule. FLUIDS: 800 mL crystalloid. ESTIMATED BLOOD LOSS: 50 mL or less. URINE OUTPUT: 100 mL. DRAINS: Quigley catheter to gravity. COMPLICATIONS: None. FINDINGS 1. External genitalia were normally formed without any obvious lesions. Normal hair distribution. Vagina had no blood or pathologic discharge. 2. Cervix was not inflamed, without any overt evidence of cervicitis. 3. Uterus was nongravid, normal size, anteverted, anteflexed. There were no obvious fibroids or other myometrial defects. 4. Left ovary was approximately 6 cm in size with a tense capsule due to a large hemorrhagic cyst. Exploration of the cyst found mostly clotted blood with cyst material and a scant solid material. We will await final pathology. 5. Right ovary was normal size without cystic activity. However, there was a 5 mm solid nodule on the surface of the capsule that was excised and sent to pathology. 6. Both tubes appeared to be open and fluffy. 7. Appendix was normal, but had a partial retrocecal portion. 8. There was no evidence of endometriosis. Anterior, posterior cul-de-sacs explored, ovarian fossa and entire pelvic peritoneum. TECHNIQUE: Prior to surgery, I had an informed consent session with the patient. I reviewed the ultrasound and CT data. Differential diagnosis was possible dermoid based on echogenic characteristics of the mass or hemorrhagic corpus luteum. Given the degree of her pain, removal of the mass was recommended. In all likelihood, chance of malignancy was less than 1 in 100. Mechanics of the surgery were reviewed. The risks were reviewed inclusive of hemorrhage, blood loss, infection, damage to urinary tract and intestines, and anesthesia reaction. All questions were answered and informed consent paperwork was signed. The patient was brought to the OR and placed on the operating table in the supine position. Intubation was difficult and GlideScope was used on 2 attempts before a successful insertion. Reference Kerri Keys's notes. After ensuring that she was properly intubated and anesthetized, we continued. She was prepped and draped in the customary sterile fashion. Quigley catheter was placed as well as HUMI uterine manipulator. Preoperative briefing was done per protocol. A small incision was placed under the umbilicus and a 5 mm Visiport trocar was inserted under direct visualization. The abdomen was insufflated with CO2 gas under 12 mm of pressure. Next, right and left lower quadrant ports were placed under direct visualization. Left port did tucker the prior laparoscopic left lower quadrant wound. The patient was placed in Trendelenburg. Pelvis was photographed and assessed. The left utero-ovarian ligament was grasped and elevated to lift the mass out of the cul-de-sac. Using [place] LigaSure, the cyst was opened using a combination of bipolar current and cutting feature. The fluid was non-viscous and removed via suction. Next, the edge of the ovary was grasped with a laparoscopic grasper and a second grasper was used to peel out the cyst wall. Portions of gelatinous and solid material were obtained and removed in total. Next, the edges of the cystotomy were cauterized with bipolar feature of the LigaSure. The internal cyst wall was then desiccated with monopolar cautery. Reference photos. After removal of the cyst, there was significant amount of ovarian tissue denuded. We meticulously used bipolar and monopolar cautery to gain hemostasis. Next, the cystotomy incision was closed with a series of 4 vertical mattress stitches of 3-0 Vicryl. This reconstructed the ovary back into a spherical structure. There was no bleeding noted after multiple rinses of the pelvis and ovary were accomplished. Next, the right nodule was grasped with a [place] style LigaSure, desiccated and divided. It was removed in total. We inspected all operative sites and ensured complete hemostasis. The abdomen had 700 mL of warm normal saline instilled into it. With the patient still in Trendelenburg, all CO2 gas was vented. Trocar sleeves were then removed under direct visualization. The skin wounds were closed with subcuticular stitches of 4-0 Monocryl. They were then dressed with Steri-Strips and pressure bandages. Additional 0.5% Marcaine was instilled into the trocar wounds for comfort. Final sponge, needle and instrument count was confirmed as correct. The patient was uneventfully awakened from general anesthesia and sent to the recovery room in stable condition. She will remain extended stay OP with plan to discharge in the morning. Warning sign and callback instructions are reviewed. The patient will return to clinic in 2 weeks for a wound check. Anticipate 2 weeks of work excuse will be required. DISCHARGE MEDICATIONS 1. Motrin 600 q.6h. 2. [place] 5/325 q.4h. p.r.n. breakthrough pain. 3. Colace 250 b.i.d. TD: 01/13/2018 00:02 MTDD
--- NOTE | 2018-01-13 09:13 | PROCEDURE REPORT ---
Hospitalist Procedure Note - Procedure Note Procedure Note: Patient feels well and notes marked improvement in left lower quadrant pain. She is able to shower and ambulate. Soon she will eat breakfast. Post breakfast she would be ready for discharge. Abdominal exam: Nondistended improvement in left lower quadrant tenderness; wounds intact compression bandage removed. Patient is ready for discharge. Reviewed wound care instructions. She is to call back if she encounters fever of 100.5 or greater, return of severe abdominal pain or foul discharge. [facility] Medications already written: Motrin 600 and Drifting
== END 2018-01-13 09:55 | disposition home or self-care (01) ==
LOC: ED 13:10 → SDS 19:51 → OBS 21:00 → SDS 01-13 09:55
PROVIDERS: ATTEND Obstetrics & Gynecology
PROC: 0UQ14ZZ Repair Left Ovary, Percutaneous Endoscopic Approach (ICD-10-PCS; 2018-01-12)
PROC: 0UB24ZZ Excision of Bilateral Ovaries, Percutaneous Endoscopic Approach (ICD-10-PCS; principal; 2018-01-12 20:27)
DX: N83.12 Corpus luteum cyst of left ovary (principal); N83.01 Follicular cyst of right ovary
CPT/HCPCS: 58662; 76830; 76856; 81003; 81025; 93976; 96372; 99283; A9270; J0131; J1170; J7120; 81001; 87086; 88305

== ENCOUNTER 2018-02-19 22:37 | Emergency (ER) | payer OTHER ==
[2018-02-19 23:18] LABS: BILIRUBIN,URINE NEGATIVE (NEGATIVE); GLUCOSE, URINE (UA) NEGATIVE (NEGATIVE); KETONES,URINE (UA) NEGATIVE (NEGATIVE); LEUKOCYTE ESTERASE, URINE NEGATIVE (NEGATIVE); NITRITE,URINE NEGATIVE (NEGATIVE); OCCULT BLOOD,URINE LARGE (NEGATIVE); PROTEIN,URINE NEGATIVE (NEGATIVE); UROBILINOGEN,URINE 0.2 (NORMAL) E.U./dL (NORMAL)
[2018-02-19 23:20] LABS: CLARITY,URINE CLEAR (CLEAR); HCG UR QUAL NEGATIVE
[2018-02-19 23:25] LABS: BACTERIA,URINE Rare /HPF (None Seen); SQUAMOUS EPITHELIAL CELL,UR MOD Squamous (<= Few)
[2018-02-19] MEDS ORDERED: MAG HYDROX/AL HYDROX/SIMETH 30 ML UDC PO STA (23:27)
[2018-02-19] MEDS ORDERED: ONDANSETRON ODT 4 MG TABLET TL STA (23:27)
[2018-02-19] MEDS ORDERED: LIDOCAINE VISCOUS 2% 15 ML UDC MM STA (23:27)
[2018-02-19] MEDS ORDERED: LORazepam 0.5 MG TABLET PO STA (23:28)
--- NOTE | 2018-02-19 23:59 | ED Physician Documentation ---
PD HPI MHE - Stated complaint Stated Complaint: ANXIETY - Chief complaint Chief Complaint: MHE - History obtained from History obtained from: Patient - History of Present Illness Primary symptom: Anxiety Timing - onset: Today Contributing factors: Other Similar symptoms before: Work up / diagnostics Recently seen: Not recently seen - Additional information Additional information: Patient is a 22 year old female with a history of anxiety who is presenting to [facility] emergency department for abdominal pain and panic attack. patient states that she had some gastritis type symptoms which made her worried that she was going to get sick. this in tern caused the patient to have a panic attack. patient took one lorazapam but it did not help too much. Review of Systems Constitutional: denies: Fever, Chills Eyes: reports: Reviewed and negative Ears: reports: Reviewed and negative Cardiac: denies: Chest pain / pressure, Palpitations Respiratory: denies: Dyspnea GI: reports: Abdominal Pain, Nausea. 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 cysts : None HEENT: None Psych: None Musculoskeletal: None Derm: None - Past Surgical History Past Surgical History: Yes /VICE PRESIDENT COMPLIANCE: Other - Present Medications Home Medications: Ambulatory Orders Medication Instructions Recorded Confirmed Omeprazole [PriLOSEC] 20 mg PO DAILY 01/12/18 01/12/18 LORazepam [Ativan] 0.5 mg PO HS #5 tablet 02/20/18 Ondansetron Odt [Zofran] 4 mg TL Q6H PRN #14 tablet 02/20/18 - Allergies Allergies/Adverse Reactions: Allergies Allergy/AdvReac Type Severity Reaction Status Date / Time No Known Drug Intolerances Allergy Unknown Verified 01/13/18 01:56 latex AdvReac Rash Verified 01/12/18 13:16 - Social History Does the pt smoke?: No Smoking Status: Never smoker Does the pt drink ETOH?: No Does the pt have substance abuse?: No - Immunizations Immunizations are current?: Yes - POLST Patient has POLST: No PD ED PE NORMAL - Vitals Vital signs reviewed: Yes - General General: Alert and oriented X 3 - HEENT HEENT: Atraumatic, Moist mucous membranes - Neck Neck: Supple, no meningeal sign - Cardiac Cardiac: RRR - Respiratory Respiratory: No respiratory distress - Derm Derm: Normal color, Warm and dry - Extremities Extremities: No deformity - Neuro Neuro: Alert and oriented X 3 Eye Opening: Spontaneous PD ED PE EXPANDED - Abdomen Abdomen: Tender to palpation, Epigastric. No: Rebound, Guarding - Psych Psych: Anxious. No: Depressed, Suicidal, Homicidal Results - Vitals Vitals: Vital Signs - 24 hr 02/19/18 22:52 Temperature 36.8 C Heart Rate 80 Respiratory 18 Rate Blood Pressure 112/77 O2 Saturation 100 Oxygen O2 Source Room air - Labs Labs: Laboratory Tests 02/19/18 02/19/18 23:05 23:05 Urine Color YELLOW Urine Clarity CLEAR Urine pH 7.0 Ur Specific [place] <=1.005 <=1.005 Urine Protein NEGATIVE Urine Glucose (UA) NEGATIVE Urine Ketones NEGATIVE Urine Occult Blood LARGE H Urine Nitrite NEGATIVE Urine Bilirubin NEGATIVE Urine Urobilinogen 0.2 (NORMAL) Ur Leukocyte Esterase NEGATIVE Urine RBC 6-10 H Urine WBC 0-3 Ur Squamous Epith Cells MOD Squamous H Urine Bacteria Rare Ur Microscopic Review INDICATED Urine Culture Comments NOT INDICATED Urine HCG, Qual NEGATIVE PD MEDICAL DECISION MAKING - ED course Complexity details: reviewed old records, reviewed results, re-evaluated patient, considered differential, d/w patient ED course: Patient was seen and examined at bedside. Patient's urine was collected. patient was treated with ativan, zofran, maalox and viscous lidocaine. patient's urinalysis had no significant abnormalities and her pain resolved with the medications. patient's vital signs were within normal limits and abdominal exam was benign. patient required no further work up at this time and was stable for discharge with outpatient follow up. - Sepsis Event Vital Signs: Vital Signs - 24 hr 02/19/18 22:52 Temperature 36.8 C Heart Rate 80 Respiratory 18 Rate Blood Pressure 112/77 O2 Saturation 100 Oxygen O2 Source Room air Departure - Departure Disposition: 01 Home, Self Care Clinical Impression: Anxiety Condition: Good Instructions: ED Panic Attack Follow-Up: CHANTAL RIVERS [Primary Care Provider] - Tomorrow Prescriptions: LORazepam [Ativan] 0.5 mg PO HS #5 tablet Ondansetron Odt [Zofran] 4 mg TL Q6H PRN #14 tablet PRN Reason: Nausea / Vomiting Comments: There are a couple of different issues going on. for the anxiety you will need to work on breathing exercises and other stress relieving exercises as well [place] For the abdominal pain you should avoid spicey foods, acidic food (coffee, alcohol, citrus etc). You can take maalox, tums or tylenol as needed for pain. You may return to the emergency department at any time for new, worsening or uncontrollable symptoms.
[2018-02-20 00:39] VITALS: BP 110/76
== END 2018-02-20 00:38 | disposition home or self-care (01) ==
LOC: ED 22:37
DX: F41.9 Anxiety disorder, unspecified (principal); R10.13 Epigastric pain
CPT/HCPCS: 81001; 81025; 99283; A9270; Q0162; 81003; 87086

== ENCOUNTER 2018-03-21 12:05 | Emergency (ER) | payer OTHER ==
[2018-03-21 13:05] LABS: BILIRUBIN,URINE NEGATIVE (NEGATIVE); GLUCOSE, URINE (UA) NEGATIVE (NEGATIVE); KETONES,URINE (UA) NEGATIVE (NEGATIVE); LEUKOCYTE ESTERASE, URINE NEGATIVE (NEGATIVE); NITRITE,URINE NEGATIVE (NEGATIVE); OCCULT BLOOD,URINE TRACE-LYSE (NEGATIVE); PROTEIN,URINE NEGATIVE (NEGATIVE); UROBILINOGEN,URINE 0.2 (NORMAL) E.U./dL (NORMAL)
[2018-03-21 13:08] LABS: CLARITY,URINE CLEAR (CLEAR); HCG UR QUAL NEGATIVE
[2018-03-21] MEDS ORDERED: KETOROLAC 60 MG/2 ML VIAL IVP STA (13:33)
[2018-03-21] MEDS ORDERED: SODIUM CHLORIDE 0.9% 1,000 ML IV ONE (13:33)
[2018-03-21 13:54] LABS: BASOPHILS % (AUTO) 0.8 %; EOSINOPHILS # (AUTO) 0.1 10^3/uL (0.0-0.7); EOSINOPHILS % (AUTO) 2.6 %; HGB - HEMOGLOBIN 15.1 g/dL (12.0-16.0); LYMPHOCYTES # (AUTO) 1.1 10^3/uL (1.5-3.5); LYMPHOCYTES % (AUTO) 20.1 %; MEAN CORPUSCULAR HEMOGLOBIN 30.2 pg (27.0-31.0); MEAN CORPUSCULAR HGB CONC 34.6 g/dL (32.0-36.0); MEAN PLATELET VOLUME 7.4 fL (7.9-10.8); MONOCYTES # (AUTO) 0.7 10^3/uL (0.0-1.0); MONOCYTES % (AUTO) 12.2 %; NEUTROPHILS # (AUTO) 3.5 10^3/uL (1.5-6.6); NEUTROPHILS % (AUTO) 64.3 %; PLT - PLATELET COUNT 228 10^3/uL (130-450); RED BLOOD COUNT 5.01 10^6/uL (4.20-5.40); RED CELL DISTRIBUTION WIDTH 13.3 % (12.0-15.0); WHITE BLOOD COUNT 5.4 x10^3/uL (4.8-10.8)
[2018-03-21 14:06] LABS: ALBUMIN 5.5 g/dL (3.2-5.5); ALBUMIN/GLOBULIN RATIO 1.8 (1.0-2.2); CALCIUM 9.6 mg/dL (8.5-10.3); CREATININE 0.9 mg/dL (0.4-1.0); TOTAL PROTEIN 8.5 g/dL (6.7-8.2)
--- NOTE | 2018-03-21 14:59 | ED Physician Documentation ---
PD HPI ABD PAIN - Stated complaint Stated Complaint: LOWER ABD PX,LIGHTHEADED,FEMALE - Chief complaint Chief Complaint: Abd Pain - History obtained from History obtained from: Patient - History of Present Illness Timing - onset: How many weeks ago (2) Timing - duration: Weeks (2) Timing - details: Gradual onset Severity Comments: moderate Quality: Sharp, Stabbing Location: LLQ, Other (left pelvic pain) Radiation: Lower back Improved by: Other (nothing) Associated symptoms: Nausea. No: Hematemesis, Diarrhea, Constipation, Dysuria, Hematuria, Vaginal bleeding Similar symptoms before: Other (h/o ovarian cyst) Recently seen: Not recently seen Review of Systems Constitutional: denies: Fever, Chills Eyes: denies: Discharge Ears: denies: Ear pain Nose: denies: Congestion Throat: denies: Sore throat Cardiac: denies: Chest pain / pressure Respiratory: denies: Cough GI: reports: Abdominal Pain, Nausea. 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: Other - Present Medications Home Medications: Ambulatory Orders Medication Instructions Recorded Confirmed No Known Home Medications 03/21/18 03/21/18 - Allergies Allergies/Adverse Reactions: Allergies Allergy/AdvReac Type Severity Reaction Status Date / Time latex Allergy Rash Verified 03/21/18 12:11 - Social History Does the pt smoke?: No Smoking Status: Never smoker Does the pt drink ETOH?: No Does the pt have substance abuse?: No - Immunizations Immunizations are current?: Yes - POLST Patient has POLST: No Results - Vitals Vitals: Vital Signs - 24 hr 03/21/18 12:08 Temperature 36.9 C Heart Rate 83 Respiratory 16 Rate Blood Pressure 114/73 O2 Saturation 99 Oxygen O2 Source Room air - Labs Labs: Laboratory Tests 03/21/18 03/21/18 03/21/18 12:55 13:49 13:49 WBC 5.4 RBC 5.01 Hgb 15.1 Hct 43.6 MCV 87.0 MCH 30.2 MCHC 34.6 RDW 13.3 Plt Count 228 MPV 7.4 L Neut # (Auto) 3.5 Lymph # (Auto) 1.1 L [place] # (Auto) 0.7 Eos # (Auto) 0.1 Baso # (Auto) 0.0 Absolute Nucleated RBC 0.00 Nucleated RBC % 0.0 Sodium 138 Potassium 3.5 Chloride 100 L Carbon Dioxide 27 Anion Gap 11.0 BUN 11 Creatinine 0.9 Estimated GFR (MDRD) 78 L Glucose 84 Calcium 9.6 Total Bilirubin 1.0 AST 23 ALT 15 Alkaline Phosphatase 50 Total Protein 8.5 H Albumin 5.5 Globulin 3.0 Albumin/Globulin Ratio 1.8 Lipase 200 H Urine Color YELLOW Urine Clarity CLEAR Urine pH 6.0 Ur Specific [place] 1.025 Urine Protein NEGATIVE Urine Glucose (UA) NEGATIVE Urine Ketones NEGATIVE Urine Occult Blood TRACE-LYSE Urine Nitrite NEGATIVE Urine Bilirubin NEGATIVE Urine Urobilinogen 0.2 (NORMAL) Ur Leukocyte Esterase NEGATIVE Ur Microscopic Review NOT INDICATED Urine Culture Comments NOT INDICATED Urine HCG, Qual NEGATIVE - Rads (name of study) US pelvic Radiology: Final report received (IMPRESSION: Unremarkable pelvic ultrasound. The previously seen left ovarian cyst has significantly decreased in size since 01/12/2018 with only a small 2 x 0.7 x 1.7 cm residual. ) PD MEDICAL DECISION MAKING - ED course ED course: On reevaluation the patient resting comfortably and appears to be in no significant distress. The patient's workup does not reveal any acute etiology that would necessitate admission to the hospital or acute surgical consultation. The patient is actually scheduled to see OB tomorrow and appears appropriate for discharge and further workup as an outpatient. The patient's lipase is elevated but her symptoms are not suggestive of pancreatitis. I discussed the findings with the patient who understands and agrees. I discussed warning signs and recommended returning to the emergency department immediately for any worsen ing or any concerns. Departure - Departure Disposition: 01 Home, Self Care Clinical Impression: Pelvic pain Ovarian cyst Qualifiers: Laterality: left Qualified Code(s): N83.202 - Unspecified ovarian cyst, left side Instructions: Abdominal Pain, Cysts Ovarian, ED Cyst Ovarian Comments: Please follow-up with your [employer] as scheduled tomorrow. Please return to the emergency department for worsening symptoms or any concerns
--- NOTE | 2018-03-21 16:00 | Ultrasound Report ---
Reason: left sided pelvic Procedure Date: 03/21/2018 Accession Number: [id number] / [id number] Procedure: US - Transvaginal CPT Code: FULL RESULT: EXAM: PELVIC ULTRASOUND EXAM DATE: 03/21/2018 02:58 PM. CLINICAL HISTORY: Left sided pelvic pain. COMPARISON: 01/12/2018. TECHNIQUE: Realtime transvaginal scan performed of the uterus and adnexa with static image documentation. FINDINGS: Uterus: 6.7 x 3.9 x 4 cm, volume 54.6 cc. Anteverted position. Normal overall size and echotexture. Masses: None. Endometrium: 7.4 mm. Normal. Cervix: Unremarkable. Right Ovary: 3.9 x 2 x 1.9 cm, volume 7.7 cc. Normal echotexture and blood flow. Left Ovary: 3.8 x 2.8 x 2.8 cm, volume 15.5 cc. Left ovarian cyst 2 x 0.7 x 1.7 sono meters, significantly decreased in size since 01/12/2018 Free Fluid: None. Other: None. IMPRESSION: Unremarkable pelvic ultrasound. The previously seen left ovarian cyst has significantly decreased in size since 01/12/2018 with only a small 2 x 0.7 x 1.7 cm residual. [facility]
[2018-03-21 17:10] VITALS: BP 114/76
== END 2018-03-21 17:00 | disposition home or self-care (01) ==
LOC: ED 12:05
DX: N83.202 Unspecified ovarian cyst, left side (principal)
CPT/HCPCS: 36415; 76830; 80053; 81001; 81003; 81025; 83690; 85025; 87086; 87491; 87591; 96361; 96374; 99283